=== PATIENT | male | born 1945 | race Caucasian/White ===

== ENCOUNTER 2017-09-26 17:15 | Inpatient (IN) ==
[2017-09-26] MEDS ORDERED: Ipratropium/Albuterol Neb 3 ML IH ONE (17:21)
[2017-09-26] MEDS ORDERED: *HR* Heparin 5,000 UNIT/ML VIAL IVP PRN ×4 (17:26→20:12)
[2017-09-26] MEDS ORDERED: *HR* Heparin 5,000 UNIT/ML VIAL IVP ONE ×2 (17:26→20:12)
--- NOTE | 2017-09-26 17:27 | Emergency Department Note ---
Disposition Clinical Impression: NSTEMI (non-ST elevated myocardial infarction) Disposition: Admitted As Inpatient Condition: Good [facility] Provider[facility] - Forms: ED Satisfaction Letter Time of Disposition: 17:39 General Adult HPI - General Stated complaint: Elevated trop Time Seen by Provider: 09/26/17 17:21 Source: EMS Limitations: no limitations Nursing Notes Reviewed: Yes Vital Signs Reviewed: Yes - History of Present Illness HPI Narrative: Chest pain yesterday. [facility] seen [facility] today for medication refills and had an elevated troponin and EKG changes. Sent here for admission. Pain Scale: 0 - Related Data Home Medications Medication Instructions Recorded Confirmed Acetaminophen [Tylenol] 325 mg PO Q6HR 10/14/15 10/14/15 Albuterol Sulfate [Albuterol 0 puff IH Q6HR 10/14/15 10/14/15 Inhaler] Alprostadil [Caverject] 10 mcg IC QAM 10/14/15 10/14/15 Cetirizine HCl [Zyrtec] 10 mg PO QAM 10/14/15 10/14/15 Lisinopril [Zestril] 40 mg PO QAM 10/14/15 10/14/15 Metoprolol Succinate 100 mg PO QAM 10/14/15 10/14/15 Naproxen [EC-Naprosyn] 500 mg PO Q6HR 10/14/15 10/14/15 Pyridoxine HCl [Vitamin B-6] 50 mg PO QAM 10/14/15 10/14/15 hydroCHLOROthiazide 25 mg PO DAILY 10/14/15 10/14/15 [Hydrochlorothiazide] Previous Rx's Medication Instructions Recorded Amoxicillin/Clavulanate [Augmentin] 875 mg PO BIDWM #20 tablet 10/14/15 Hydrocodone/Acetaminophen [[place] 1 tab PO Q6HR PRN #16 tab 10/14/15 5-325 Tablet] Allergies Allergy/AdvReac Type Severity Reaction Status Date / Time oxybutynin Allergy Difficulty Verified 03/13/15 13:01 Swallowing All systems ED: reviewed and negative except as stated. Constitutional: Denies: fever, chills ENT ED: Denies: congestion Cardiovascular: Reports: chest pain (Yesterday not at this time). Denies: palpitations, syncope Respiratory: Reports: cough (Chronic), sputum production (Yellowish to green). Denies: dyspnea Gastrointestinal: Denies: abdominal pain, nausea, vomiting, diarrhea Genitourinary: Denies: urgency, dysuria Neurological: Denies: weakness Past Medical History - Past Medical History Attestation: Yes The following information was validated with the patient. Source: patient Medical history: Reports: COPD, coronary artery disease, hyperlipidemia, hypertension, valvular heart disease, other Surgical history: Reports: heart valve replacement, vasectomy, other (Epidurals) Psychiatric history: Reports: no psych history - Social History Smoking Status: Current every day smoker Smokeless Tobacco Status: No Alcohol use: Reports: none Drug use: Reports: none Physical Exam - General Limitations: no limitations General appearance: alert, in no apparent distress - Head Head exam: atraumatic, normocephalic, normal inspection - Eye Eye exam: Present: normal appearance, PERRL, EOMI - ENT ENT exam: normal exam, normal oropharynx, mucous membranes moist - Neck Neck exam: Present: normal inspection, full ROM, trachea midline - Chest Chest inspection: Present: normal inspection, symmetric chest wall rise - Respiratory Respiratory exam: Present: wheezes. Absent: respiratory distress, accessory muscle use, prolonged expiratory phase - Cardiovascular Cardiovascular exam: Present: regular rate, normal rhythm, normal heart sounds - Abdominal Exam Abdominal exam: Present: soft, Non-Tender. Absent: distention, guarding, rigidity, organomegaly - Extremities Exam Extremities exam: Present: normal inspection, full ROM, normal capillary refill. Absent: tenderness, pedal edema - Neurological Exam Neurological exam: Present: alert, oriented X3 - Psychiatric Psychiatric exam: Present: normal affect, normal mood - Skin Skin exam: Present: warm, dry, intact, normal color Course Course Narrative: [facility] being [facility] for [facility] due to elevated troponin and EKG changes. We did perform an EKG here that showed T-wave inversions in leads 23 aVF as well as V1. Patient does have an old EKG from the [facility] from 09/24/2016 that these were not present in. Patient does have a history of CABG. He an episode of chest pain yesterday however none today. He does have a productive cough with thick green sputum. They did not chest x-ray at the [facility] that showed no signs of pneumonia. He was given Lovenox as well as an 81 mg aspirin at that time. Patient also had basic lab work done there. He had an elevated BNP at 2296. His troponin was elevated to 0.103. His creatinine was also bumped at 1.22. This is not far from baseline his previous on September 30 of last year was 1.38. Patient was being seen at the [facility] for medication refills however when they found out he is having chest pain he did labs. I did speak with the scrap burner and they will see patient in patient. We will admit to the hospital. - Consultations Consultation #1: I spoke with Dr. Flores. He is agreeable with our plan. Time: 17:37 Consultation #2: Dr marlow has accepted the Pt in stable condition. Vital Signs Temperature 97.3 F L 09/26/17 17:16 Pulse Rate 54 09/26/17 17:16 Respiratory Rate 20 09/26/17 17:16 Blood Pressure 195/89 09/26/17 17:16 O2 Sat by Pulse Oximetry 98 09/26/17 17:16 Temperature 97.3 F L 09/26/17 17:16 Pulse Rate 54 09/26/17 17:16 Respiratory Rate 12 09/26/17 17:42 Blood Pressure 195/89 09/26/17 17:16 O2 Sat by Pulse Oximetry 97 09/26/17 17:42 Oxygen Delivery Oxygen Delivery Nasal Cannula Medical Decision Making - Medical Records Medical records reviewed: Yes I reviewed the patient's medical records. - Lab Data Lab results reviewed: Yes I reviewed the patient's lab results. Result diagrams: 09/26/17 17:20 Lab Results 09/26/17 Range/Units 17:20 WBC 8.4 (4.3-11.1) K/mcL RBC 4.79 (4.19-5.50) M/mcL Hgb 14.1 (12.9-16.9) g/dL Hct 43.0 (37.5-50.1) % MCV 89.8 (83.0-100.0) fL MCH 29.4 (28.0-33.3) pg MCHC 32.8 (31.6-35.5) g/dL RDW 14.6 H (11.5-14.5) % Plt Count 186 (140-400) K/mcL MPV 10.3 (9.4-12.4) fL - EKG Data EKG #1 EKG attestation: Yes I reviewed and interpreted this EKG. EKG results narrative: Sinus bradycardia at a rate of 53. FL interval is 153. QRS duration is 94. QT is 454. QTC is 436. He does have T-wave inversions in leads 23 aVF as well as sinusoidal T waves in lead V3 V4 and V5. These were [facility] present [facility].
[2017-09-26] MEDS ORDERED: Heparin 25,000 UNIT/500 ML D5W 25,000 UNIT/500 ML BAG IVC SCH ×2 (17:30→20:15)
--- NOTE | 2017-09-26 17:33 | Emergency Department Note ---
Disposition Clinical Impression: NSTEMI (non-ST elevated myocardial infarction) Disposition: Admitted As Inpatient Condition: Good [facility]errals: [facility]Primary Care Provider[facility] - Forms: ED Satisfaction Letter Chest Pain HPI - General Chief Complaint: ED Chest Pain Stated Complaint: Elevated trop Time Seen by Provider: 09/26/17 17:21 Source: EMS Limitations: no limitations Vital Signs Reviewed: Yes Nursing Notes Reviewed: Yes - History of Present Illness Severity scale (1-10): 0 - Related Data Home Medications Medication Instructions Recorded Confirmed Acetaminophen [Tylenol] 325 mg PO Q6HR 10/14/15 10/14/15 Albuterol Sulfate [Albuterol 0 puff IH Q6HR 10/14/15 10/14/15 Inhaler] Alprostadil [Caverject] 10 mcg IC QAM 10/14/15 10/14/15 Cetirizine HCl [Zyrtec] 10 mg PO QAM 10/14/15 10/14/15 Lisinopril [Zestril] 40 mg PO QAM 10/14/15 10/14/15 Metoprolol Succinate 100 mg PO QAM 10/14/15 10/14/15 Naproxen [EC-Naprosyn] 500 mg PO Q6HR 10/14/15 10/14/15 Pyridoxine HCl [Vitamin B-6] 50 mg PO QAM 10/14/15 10/14/15 hydroCHLOROthiazide 25 mg PO DAILY 10/14/15 10/14/15 [Hydrochlorothiazide] Previous Rx's Medication Instructions Recorded Amoxicillin/Clavulanate [Augmentin] 875 mg PO BIDWM #20 tablet 10/14/15 Hydrocodone/Acetaminophen [[place] 1 tab PO Q6HR PRN #16 tab 10/14/15 5-325 Tablet] Allergies Allergy/AdvReac Type Severity Reaction Status Date / Time oxybutynin Allergy Difficulty Verified 03/13/15 13:01 Swallowing Chest Pain PMH - Past Medical History Medical history: Reports: COPD, coronary artery disease, hyperlipidemia, hypertension, valvular heart disease, other Surgical history: Reports: heart valve replacement, vasectomy, other (Epidurals) Psychiatric history: Reports: no psych history - Social History Smoking Status: Current every day smoker Alcohol use: Reports: none Drug use: Reports: none Physical Exam - General Limitations: no limitations General appearance: alert, in no apparent distress Course Vital Signs Temperature 97.3 F L 09/26/17 17:16 Pulse Rate 54 09/26/17 17:16 Respiratory Rate 20 09/26/17 17:16 Blood Pressure 195/89 09/26/17 17:16 O2 Sat by Pulse Oximetry 98 09/26/17 17:16 Temperature 97.3 F L 09/26/17 17:16 Pulse Rate 54 09/26/17 17:16 Respiratory Rate 12 09/26/17 17:42 Blood Pressure 195/89 09/26/17 17:16 O2 Sat by Pulse Oximetry 97 09/26/17 17:42 Oxygen Delivery Oxygen Delivery Nasal Cannula Chest Pain - MDM Narrative Medical decision making narrative: 1800 hrs.: Sure he got Lovenox there. Were going to go ahead and admit to the hospitalist with cardiology consult N. Patient's in agreement with plan. No pain at this time. - Lab Data Result diagrams: 09/26/17 17:20 Lab Results 09/26/17 09/26/17 Range/Units 17:20 17:20 WBC 8.4 (4.3-11.1) K/mcL RBC 4.79 (4.19-5.50) M/mcL Hgb 14.1 (12.9-16.9) g/dL Hct 43.0 (37.5-50.1) % MCV 89.8 (83.0-100.0) fL MCH 29.4 (28.0-33.3) pg MCHC 32.8 (31.6-35.5) g/dL RDW 14.6 H (11.5-14.5) % Plt Count 186 (140-400) K/mcL MPV 10.3 (9.4-12.4) fL PT 12.5 H (9.4-12.1) Seconds INR 1.2 APTT 40.7 H (26.0-36.0) Seconds Attestation Statement - Attestation Attestation: This documentation is done with the assistance of Dragon dictation. Despite efforts made to ensure accuracy, there may be inaccuracies in hogshead mat assembler or spelling and typographical errors. I examined this patient and my medical decision-making was reviewed with the Resident Physician. I agree with the documented findings, disposition and treatment plan as described except to the extent set forth below. Patient presented from [facility]. He went there for medication refill and appointment he did tell them he had chest pain a day ago. They did a troponin was elevated at 0.103 his creatinine was also elevated at 1.22 patient states he does not have any pain now he did get aspirin Lovenox there. EKG was done and compared to his old EKG and shows no changes chest x-ray shows nonacute all done from the [facility]. Were negative and bring him into the hospital we spoke with cardiology's R have Lovenox so we will give him anymore heparin and he is admitted impression is elevated troponin with chest pain rule out non- STEMI.
[2017-09-26 17:48] LABS: Hemoglobin 14.1 g/dL (12.9-16.9); Mean Corpuscular HGB Conc 32.8 g/dL (31.6-35.5); Mean Corpuscular Hemoglobin 29.4 pg (28.0-33.3); Mean Corpuscular Volume 89.8 fL (83.0-100.0); Mean Platelet Volume 10.3 fL (9.4-12.4); Platelet Count 186 K/mcL (140-400); Red Blood Count 4.79 M/mcL (4.19-5.50); Red Cell Distribution Width 14.6 % (11.5-14.5)
[2017-09-26 18:03] LABS: INR 1.2; Prothrombin Time 12.5 Seconds (9.4-12.1)
[2017-09-26 18:06] LABS: Activated Partial Thrombo Time 40.7 Seconds (26.0-36.0)
[2017-09-26] MEDS ORDERED: Nitroglycerin 1 INCH/GM PACKET TP ONE (20:04)
[2017-09-26] MEDS ORDERED: Naloxone 0.4 MG/ML INJ IVP PRN (20:12)
[2017-09-26] MEDS ORDERED: Acetaminophen 325 MG TABLET PO PRN (20:12)
[2017-09-26] MEDS ORDERED: *HR* Morphine 2 MG/ML SYRINGE IVP PRN (20:12)
[2017-09-26] MEDS ORDERED: Albuterol 2.5 MG/3 ML NEBULIZER IH PRN (20:12)
--- NOTE | 2017-09-26 20:30 | Internal Med History&Physical ---
Date of Encounter: 09/26/17 Time of Encounter: 19:40 Internal Medicine - H&P: HPI Chief complaint: CP; SOB Admitted From: Emergency Dept Plans for Post Hospital Care: Home History of present illness: Mr. Lopez is a 72 year old male who presents to the ER in transfer from the [facility] urgent care. He was seen by his PCP today at the [facility] who noted patient was having chest pain, exertional dyspnea, and had abnormal EKG changes. He was referred to the [facility] urgent care and then referred to our ER for ongoing angina and non-ST elevation myocardial infarction. In the ER, patient was seen and evaluated and EKG showed inferolateral ST changes and depression. He was then admitted to hospitalist service with a cardiology consultation. I cannot find any documentation of our ER or the [facility] urgent care whether he received any nitrates, aspirin, or any other treatment. Upon my assessment of the patient, patient is chest pain-free and has minimal shortness of breath now. However, on further questioning, he states he has chest tightness, heaviness, and significant dyspnea with exertion. His blood pressure is very elevated currently at 193/101. I ordered stat Nitropaste placement. I will order some when necessary blood pressure medications as well. I reviewed his records from [facility] and [facility]. He does have some inferior and lateral wall ischemic changes concerning for unstable angina and non-STEMI. His troponin was elevated per the [facility] lab. As such, I will place him on heparin drip as well. Cardiology has already been consulted in the ER and will see him in the morning in consultation. Patient does have known cardiac artery disease and had a CABG over 20 years ago. He states he has never had any kind of further invasive workup, such as a heart catheterization or even a stress test since his heart surgery. He is a smoker and has been smoking for roughly 60 years. He denies any fevers, significant cough, vomiting, or diarrhea. He wheezes daily and has a baseline shortness of breath. However, his exertional dyspnea is much more pronounced now that his baseline. Past Med Surg Social Fam HX - Past Medical History Attestation: Yes The following information was validated with the patient. Source: old records reviewed, other [facility]) Medical history: COPD, coronary artery disease, hyperlipidemia, hypertension, valvular heart disease, other Additional medical history: Benign prostatic hyperplasia Psychiatric history: no psych history - Past Surgical History Surgical History: coronary bypass (CABG), vasectomy, other (Epidurals) - Social History Smoking Status: Current every day smoker Smokeless Tobacco Status: No Alcohol use: none Drug use: none Current living situation: Home Activity Level: Independent ambulation Recent Out of Country Travel Within the Last 8 Weeks: No - Family History Mother Living Status: Hx Family Cardiac Disorders: Yes Father Living Status: Hx Family Cardiac Disorders: Yes Internal Medicine - H&P: Meds Acetaminophen [Tylenol] 325 mg PO Q6HR 10/14/15 [History] Albuterol Sulfate [Albuterol Inhaler] 2 puff IH Q6HR 10/14/15 [History] Cetirizine HCl [Zyrtec] 10 mg PO QAM 10/14/15 [History] Cholecalciferol (D-3) [Vitamin D] 1,000 unit PO DAILY 09/26/17 [History] Finasteride [Proscar] 5 mg PO DAILY 09/26/17 [History] Lisinopril/Hydrochlorothiazide [Zestoretic 20-25 mg Tablet] 1 tab PO DAILY 09/26 [History] Metoprolol Succinate [Toprol Xl] 25 mg PO BID 09/26/17 [History] Naproxen [Naprosyn] 500 mg PO BID 09/26/17 [History] Terazosin HCl 4 mg PO HS 09/26/17 [History] 3 Allergy/AdvReac Type Severity Reaction Status Date / Time oxybutynin Allergy Difficulty Verified 03/13/15 13:01 Swallowing - Constitutional Constitutional: no chills, no fever(s), no night sweats - EENT Eyes: no blurry vision, no change in vision Ears: no ear pain, no tinnitus Nose, mouth and throat: no nasal congestion, no sore throat - Cardiovascular Cardiovascular ROS IM: chest pain, dyspnea, dyspnea on exertion, edema, no orthopnea, no paroxysmal nocturnal dyspnea, no syncope - Respiratory Respiratory: cough, dyspnea, dyspnea on exertion, wheezing, no hemoptysis, no chest congestion, no excessive phlegm production, no change in phlegm color, no pain with cough - Gastrointestinal Gastrointestinal: no abdominal pain, no diarrhea, no hematemesis, no hematochezia, no melena, no vomiting - Genitourinary Genitourinary ROS male: no flank pain, no hematuria - Musculoskeletal Musculoskeletal ROS IM: no atrophy, no myalgias - Integumentary Integumentary IM: no rash, no jaundice - Neurological Neurological ROS: no dizziness, no focal weakness, no frequent falls, no headache(s) - Psychiatric Psychiatric: no anxiety, no depression - Endocrine Endocrine IM: no polydipsia, no polyuria - Allergic/Immunologic Allergic/Immunologic: wheezing, no GI upset with certain foods - Constitutional Vitals: Temp Pulse Resp BP Pulse Ox 97.8 F 54 16 191/96 99 09/26/17 18:33 09/26/17 18:33 09/26/17 18:33 09/26/17 18:33 09/26/17 18:33 General appearance: Present: cooperative, A&O X 3, pleasant, no acute distress, answers questions appropriately - Head Head exam: Present: atraumatic, normal inspection - Eye Eye exam: Present: EOMI, normal appearance, PERRL. Absent: scleral icterus Pupils: Present: normal accommodation - ENT ENT exam: Present: mucous membranes dry, normal exam, normal oropharynx - Neck Neck exam general surgery: Present: full ROM, normal inspection, supple. Absent : lymphadenopathy, tenderness, nuchal rigidity, thyromegaly - Expanded Neck Exam Neck exam: Absent: carotid bruit - Respiratory Respiratory exam: Present: prolonged expiratory phase, rhonchi, wheezes. Absent : accessory muscle use, chest wall tenderness, CTAB, rales, respiratory distress - Cardiovascular Cardiovascular exam: Present: bradycardia (HR 50's), RRR, +S1, +S2, systolic murmur (grade 1). Absent: diastolic murmur - GI/Abdominal GI/Abdominal exam: Present: normal bowel sounds, soft. Absent: guarding, hepatomegaly, mass, rebound, splenomegaly, tenderness - Extremities Exam Extremities exam: Present: full ROM, pedal edema (1+), warm, radial pulses palpable and symmetrical. Absent: calf tenderness, tenderness - Back Exam Back exam: Present: normal inspection. Absent: CVA tenderness (L), CVA tenderness (R) - Neurological Exam Neurological exam: Present: alert, CN II-XII intact, oriented X3, no focal deficits - Psychiatric Psychiatric exam: Present: normal affect, normal mood - Skin Skin exam: Present: dry, warm. Absent: rash Internal Med - H&P Results - Labs CBC & Chem 7: 09/26/17 17:20 Labs: I reviewed the labs from the [facility] and they include the following: Sodium 142 Potassium 4.1 Chloride 105 Carbon dioxide 28 Glucose 94 BUN 21 Creatinine 1.22 Troponin 0.103 with a reference range of 0-0.045 - EKG Data -: EKG Interpreted by Myself - EKG Data Prior EKG available for review: yes EKG comments: 09/26/17 20:36 Sinus bradycardia with inferolateral ST-T depression suggestive of ischemia - VTE Reasons for not Prescribing Prophylaxis: Not indicated-Anticoagulated or INR therapeutic - Assessment and plan (1) NSTEMI (non-ST elevated myocardial infarction) Current Visit: Yes Status: Acute Assessment and plan: 1. I ordered ASA, STATIN, heparin drip per ACS protocol, and nitropaste. 2. Will order Morphine PRN for chest pain unrelieved by above. 3. Will order CXR, ECHO, trend troponins, and EKG's. 4. Cardiology has been consulted. (2) Hypertensive urgency Current Visit: Yes Status: Acute Assessment and plan: 1. I asked RN to place NTP STAT. 2. I will order Hydralazine PRN for SBP > 160. 3. If BP uncontrolled by above, will adjust medications and consider more aggressive treatment (Nicardipine, nitroglycerin drip, etc.) if remains unstable. (3) DVT prophylaxis Current Visit: Yes Status: Acute Assessment and plan: 1. Heparin drip as above.
[2017-09-26 20:56] LABS: Hematocrit 39.5 % (37.5-50.1); Hemoglobin 12.8 g/dL (12.9-16.9); Mean Corpuscular HGB Conc 32.4 g/dL (31.6-35.5); Mean Corpuscular Hemoglobin 29.2 pg (28.0-33.3); Mean Platelet Volume 10.2 fL (9.4-12.4); Platelet Count 178 K/mcL (140-400); Red Blood Count 4.39 M/mcL (4.19-5.50); Red Cell Distribution Width 14.7 % (11.5-14.5)
[2017-09-26 20:59] LABS: INR 1.2
[2017-09-26 21:01] LABS: Activated Partial Thrombo Time 46.4 Seconds (26.0-36.0)
[2017-09-26] MEDS: Ipratropium/Albuterol Neb 3 ML IH SCH (21:37)
[2017-09-26] MEDS: Metoprolol XL (24 HR) Succ 25 MG TAB.ER.24H PO SCH (23:45)
[2017-09-26] MEDS: Aspirin 81 MG TAB.CHEW PO SCH (23:56)
[2017-09-27] MEDS: Ipratropium/Albuterol Neb 3 ML IH SCH ×2 (03:53→10:18)
[2017-09-27 04:17] LABS: Basophils # 0.1 K/mcL (0.0-0.2); Basophils % 0.7 %; Eosinophils # 0.6 K/mcL (0.0-0.6); Eosinophils % 8.4 %; Hematocrit 36.5 % (37.5-50.1); Hemoglobin 12.1 g/dL (12.9-16.9); Immature Granulocytes % 0.3 % (0-4); Lymphocytes # 1.6 K/mcL (0.6-4.6); Lymphocytes % 22.5 %; Mean Corpuscular HGB Conc 33.2 g/dL (31.6-35.5); Mean Corpuscular Volume 90.6 fL (83.0-100.0); Mean Platelet Volume 10.7 fL (9.4-12.4); Monocytes # 0.7 K/mcL (0.0-1.3); Monocytes % 9.7 %; Neutrophils # 4.1 K/mcL (1.6-8.9); Platelet Count 160 K/mcL (140-400); Red Blood Count 4.03 M/mcL (4.19-5.50); Red Cell Distribution Width 14.6 % (11.5-14.5); Segmented Neutrophils % 58.4 %
[2017-09-27 04:30] LABS: INR 1.2; Prothrombin Time 12.9 Seconds (9.4-12.1)
[2017-09-27 04:37] LABS: Alanine Aminotransferase 27 Units/L (7-52); Albumin 3.6 g/dL (3.5-5.7); Albumin/Globulin Ratio 1.3 (1.1-2.2); Alkaline Phosphatase 51 Units/L (34-104); Aspartate Amino Transferase 23 Units/L (13-39); BUN/Creatinine Ratio 21 (6-26); Bilirubin,Total 0.5 mg/dL (0.3-1.0); Blood Urea Nitrogen 24 mg/dL (8-23); Carbon Dioxide 27 mEq/L (23-29); Chloride 106 mEq/L (98-107); Chol/HDL Ratio 6.1 (0-4.9); Cholesterol 147 mg/dL (< 200); Globulin 2.8 g/dL (2.4-3.5); Glucose 116 mg/dL (70-105); HDL Cholesterol 24 mg/dL (40-59); LDL Cholesterol,Calculated 97 mg/dL (0-99); Osmolality,Calculated 297 (280-300); Potassium 3.9 mEq/L (3.5-5.1); Sodium 141 mEq/L (136-145); Total Protein 6.4 g/dL (6.4-8.9); Triglycerides 131 mg/dL (< 150); eGFR For African Americans > 60 (> 60); eGFR For Non-African Americans > 60 (> 60)
[2017-09-27 04:58] LABS: Activated Partial Thrombo Time 143.7 Seconds (26.0-36.0)
[2017-09-27 04:59] LABS: Heparin anti-factor XA UFH 0.94 IU/mL (0.30-0.70)
[2017-09-27] MEDS ORDERED: Nitroglycerin 1 INCH/GM PACKET TP SCH (06:00)
[2017-09-27] MEDS ORDERED: Finasteride 5 MG TABLET PO SCH (09:00)
[2017-09-27] MEDS ORDERED: Cholecalciferol (D-3) 1,000 UNIT TABLET PO SCH (09:00)
[2017-09-27] MEDS ORDERED: Loratadine 10 MG TABLET PO SCH (09:00)
--- NOTE | 2017-09-27 09:25 | Discharge Summary ---
<More Walters - Last Filed: 09/27/17 09:23> - NOTES TO OUTPATIENT PROVIDER Notes to Outpatient Provider: Patient left AMA before he could be evaluated by Cardiology. Orders not resulted at time of discharge: Pending orders 09/27/17 06:00 ECG 12 lead ECG [ECG] AM 0600 09/27/17 13:00 PTT [Activated Partial Thrombo Time] [COAG] Timed Date of Encounter: 09/27/17 Time of Encounter: 09:23 - Discharge Diagnosis (1) NSTEMI (non-ST elevated myocardial infarction) Priority: Primary Status: Acute (2) Hypertensive urgency Priority: Secondary Status: Acute (3) DVT prophylaxis Priority: Secondary Status: Acute Hospital course: Mr. Lopez is a 72 year old male who presented to [facility] as a transfer from the [place] urgent care. He was seen by his PCP 09/26 at the [facility] who noted patient was having chest pain, exertional dyspnea, and had abnormal EKG changes. He was referred to the [place] urgent care and then referred to [facility] for ongoing angina and NSTEMI. In the ER, patient was seen and evaluated and EKG showed inferolateral ST changes and depression. He was then admitted to hospitalist service with a cardiology consultation. At time of admission he was CP free, but had elevated BP at 193/101. Nitropaste was applied to pt with decrease in BP. He was started on Heparin gtt as he had elevated toponin with inferior and lateral wall ischemic changes. The patient was monitored overnight on heparin gtt. This morning he awoke and asked for breakfast. He was told that he was to remain NPO until evaluated by Cardiology. The patient became angry and stated that he wanted to leave AMA due to "wanting coffee and breakfast." I discussed with the patient the purpose of remaining NPO and testing that may be necessary to further evaluated his symptoms and EKG changes. The patient states he doesn' t want any further testing and wants to leave. Patient informed that risks of leaving include worsening cardiac condition and . Patient states that he understands and still wants to leave. AMA paperwork signed by myself and the patient, RN as witness. Pt will leave AMA when SW arranges transport to his car that is currently at the [place]. Discharge discussed with: patient, nurse - Time Spent with Patient Total time spent providing and/or coordinating discharge services: - Discharge Medications Home Medications: Acetaminophen [Tylenol] 325 mg PO Q6HR 10/14/15 [History] Albuterol Sulfate [Albuterol Inhaler] 2 puff IH Q6HR 10/14/15 [History] Cetirizine HCl [Zyrtec] 10 mg PO QAM 10/14/15 [History] Cholecalciferol (D-3) [Vitamin D] 1,000 unit PO DAILY 09/26/17 [History] Finasteride [Proscar] 5 mg PO DAILY 09/26/17 [History] Lisinopril/Hydrochlorothiazide [Zestoretic 20-25 mg Tablet] 1 tab PO DAILY 09/26 [History] Metoprolol Succinate [Toprol Xl] 25 mg PO BID 09/26/17 [History] Naproxen [Naprosyn] 500 mg PO BID 09/26/17 [History] Terazosin HCl 4 mg PO HS 09/26/17 [History] Allergies/Adverse Reactions: 3 Allergy/AdvReac Type Severity Reaction Status Date / Time oxybutynin Allergy Difficulty Verified 03/13/15 13:01 Swallowing Date of admission: 09/26/17 18:12 Primary care physician: [facility] Consults: 09/26/17 20:16 Consult to Physician [CONS] Routine Consulting Provider: Sree Flores Reason for Consult: NSTEMI Call Completed: No 09/27/17 08:42 Consult to Director Of Software Development [CONS] Stat Reason for SW Consult: pt wanting to leave AMA, car is at the [place], needs help with transport Discharging clinician: More Walters Anticipated date of discharge: 09/27/17 - Constitutional Vitals: Temp Pulse Resp BP Pulse Ox 97.8 F 48 16 122/57 99 09/27/17 05:45 09/27/17 05:45 09/27/17 05:45 09/27/17 05:45 09/27/17 05:45 General appearance: Present: cooperative, A&O X 3, no acute distress, answers questions appropriately - Head Head exam: Present: atraumatic, normocephalic - Respiratory Respiratory exam: Absent: accessory muscle use, respiratory distress - Neurological Exam Neurological exam: Present: alert, oriented X3, no focal deficits. Absent: facial droop, speech deficit - Psychiatric Psychiatric exam: Present: agitated - Expanded Psychiatric Exam Focused psych exam: Present: pressured speech - Skin Skin exam: Present: dry, intact - Patient Status Disposition: Left Against Medical Advice Condition: Fair Functional capacity at discharge: independent ambulation Overall status at discharge: patient is not back to baseline - Discharge Instructions Instructions: Myocardial Infarction (DC), Chronic Hypertension (DC) Follow Up With: [facility] [Primary Care Provider] - - Diet and Activity Activity: increase activity as tolerated Diet: low fat, low cholesterol - VTE Reasons for not Prescribing Prophylaxis: Not indicated-Anticoagulated or INR therapeutic <Dariel Knight - Last Filed: 09/27/17 18:55> Orders not resulted at time of discharge: Pending orders 09/27/17 06:00 ECG 12 lead ECG [ECG] AM 0600 Date of Encounter: 09/27/17 - Discharge Diagnosis (1) NSTEMI (non-ST elevated myocardial infarction) Status: Acute (2) Hypertensive urgency Status: Acute (3) DVT prophylaxis Status: Acute Hospital course: Mr. Lopez is a 72 year old male - Time Spent with Patient Total time spent providing and/or coordinating discharge services: Date of admission: 09/26/17 18:12 Primary care physician: PCP [facility] Consults: 09/26/17 20:16 Consult to Physician [CONS] Routine Consulting Provider: Sree Flores Reason for Consult: NSTEMI Call Completed: No 09/27/17 08:42 Consult to Director Of Software Development [CONS] Stat Reason for SW Consult: pt wanting to leave AMA, car is at the [place], needs help with transport - Constitutional Vitals: Temp Pulse Resp BP Pulse Ox 97.8 F 60 16 160/70 94 09/27/17 05:45 09/27/17 09:00 09/27/17 09:00 09/27/17 09:00 09/27/17 09:00 - Patient Status Functional capacity at discharge: independent ambulation Overall status at discharge: other (unsure if patient back to baseline, refuses further evaluation) - Attending Attestation I examined this patient and my medical decision-making was reviewed with the Resident Physician. I agree with the documented findings, disposition and treatment plan as described except to the extent set forth below. Patient insisted on leaving despite our discussion of risks leaving without further workup and treatment.
[2017-09-27] MEDS: Aspirin 81 MG TAB.CHEW PO SCH (09:27)
[2017-09-27] MEDS: Metoprolol XL (24 HR) Succ 25 MG TAB.ER.24H PO SCH (09:29)
[2017-09-27 09:32] VITALS: BP 160/70
--- NOTE | 2017-09-27 09:40 | Event Note ---
Date of Encounter: 09/27/17 Time of Encounter: 08:30 - Cardiology Event Note Cardiology consulted for NSTEMI. On my encounter with patient he declines care or any testing. He was unwilling to discuss his symptoms, diagnosis, or recommended treatment. Reports that he is upset due to not receiving breakfast. I did offer him breakfast and to stay for further evaluation and he declined. Risk of leaving AMA including severe adverse event, TX, cardiogenic shock, and even reviewed. Patient states that he did not care and did not want to be here. Primary team notified.
--- NOTE | 2017-09-27 17:25 | Electrocardiograph Report ---
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
== END 2017-09-27 10:45 | disposition left against medical advice (07) | DRG 282 ==
LOC: EMEROO 17:15 → 2NENU 18:12
PROVIDERS: ADMIT Pediatrics; ATTEND Family Medicine